=== PATIENT | male | born 1955 ===

== ENCOUNTER → 2023-10-31 09:06 | Outpatient (REF) | payer OTHER, SELFPAY | LOC: RAD 09:06 | PROVIDERS: ATTENDING PHYSICIAN Surgery Vascular Surgery; FAMILY PHYSICIAN Internal Medicine | DX: I73.9 Peripheral vascular disease, unspecified (principal) | CPT/HCPCS: 93922 ==

== ENCOUNTER → 2024-02-25 07:11 | Outpatient (REF) | payer OTHER, SELFPAY | LOC: DHCBC/DCA 07:11 | PROVIDERS: ATTENDING PHYSICIAN Internal Medicine Cardiovascular Disease; FAMILY PHYSICIAN Internal Medicine | DX: I25.10 Atherosclerotic heart disease of native coronary artery without angina pectoris (principal) | CPT/HCPCS: 78452; 93017; A9500 ==

== ENCOUNTER 2024-03-13 06:21 | Day surgery (SDC) | payer OTHER, SELFPAY | END 2024-03-13 11:14 | disposition home or self-care (01) | LOC: GI 06:21 | PROVIDERS: ATTENDING PHYSICIAN Specialist | DX: Z12.11 Encounter for screening for malignant neoplasm of colon (principal); K57.30 Diverticulosis of large intestine without perforation or abscess without bleeding; D12.0 Benign neoplasm of cecum; D12.2 Benign neoplasm of ascending colon; D12.3 Benign neoplasm of transverse colon; D12.5 Benign neoplasm of sigmoid colon; Z86.0101 Personal history of adenomatous and serrated colon polyps | CPT/HCPCS: 45385; 45380; 88305 ==

== ENCOUNTER → 2024-11-11 10:27 | Outpatient (REF) | payer OTHER, SELFPAY | LOC: RAD 10:27 | PROVIDERS: ATTENDING PHYSICIAN Surgery Vascular Surgery; FAMILY PHYSICIAN Internal Medicine | DX: I73.9 Peripheral vascular disease, unspecified (principal) | CPT/HCPCS: 93922 ==